=== PATIENT | female | born 1985 | race Asian ===

== ENCOUNTER → 2017-11-28 | Outpatient (REF) ==
[2017-11-28 13:43] LABS: RUBELLA IgG QUALITATIVE IMMUNE (IMMUNE)
[2017-11-29 08:11] LABS: RUBEOLA IgG ANTIBODY >300.0 AU/mL (Immune >29.9)
[2017-12-01 08:09] LABS: QUANTIFERON GOLD TB Negative (Negative); TB Test (QFT) Antigen 0.09 IU/mL (.); TB Test (QFT) Antigen Minus Ni 0.04 IU/mL (.); TB Test (QFT) Mitogen 7.21 IU/mL (.); TB Test (QFT) Nil 0.05 IU/mL (.)
== END ==
LOC: M LAB 11:29
DX: Z02.89 Encounter for other administrative examinations (principal)

== ENCOUNTER 2019-04-08 09:51 | Day surgery (SDC) | payer OTHER ==
[~2019-04-08] VITALS: Ht 162.6 cm; Wt 54.0 kg
[~2019-04-08 09:51] MED LIST: ADDE1TAB14 PO; IBUP-1114 PO; LR 1,000 ML IV ONE; YAZ1TAB PO
[2019-04-08 10:22] LABS: HEMATOCRIT 42.2 % (36.0-47.0); HEMOGLOBIN 13.3 g/dl (12.0-15.5); MEAN CORPUSCULAR HEMOGLOBIN 29.2 pg (27.0-33.0); MEAN CORPUSCULAR HGB CONC 31.5 g/dl (32.0-36.5); MEAN CORPUSCULAR VOLUME 92.5 fl (80.0-96.0); PLATELET COUNT, AUTOMATED 292 10^3/uL (150-450); RED BLOOD COUNT 4.56 10^6/uL (4.00-5.40); WHITE BLOOD COUNT 7.6 10^3/uL (4.0-10.0)
[2019-04-08 10:49] LABS: HCG, SERUM QUALITATIVE NEGATIVE (NEGATIVE)
[2019-04-08] MEDS ORDERED: KETOROLAC 60 MG/2 ML VIAL (J1885) As Ordered ONE (10:57)
[2019-04-08] MEDS ORDERED: ONDANSETRON 4MG/2ML VIAL (J2405) As Ordered ONE (10:57)
[2019-04-08] MEDS ORDERED: LIDOCAINE 2% INJ 100 MG/5 ML SDV (FOR ANES.) As Ordered ONE (10:57)
[2019-04-08] MEDS ORDERED: dexameTHASONE 4 MG/ML 1ML VIAL (J1100) As Ordered ONE (10:57)
[2019-04-08] MEDS ORDERED: fentaNYL 100 MCG/2 ML INJECTION (J3010) As Ordered ONE (10:57)
[2019-04-08] MEDS ORDERED: PROPOFOL 200 MG/20 ML VIAL As Ordered ONE (10:57)
[2019-04-08] MEDS ORDERED: MIDAZOLAM INJ 2 MG/2 ML VIAL (J2250) As Ordered ONE (10:57)
[2019-04-08] MEDS ORDERED: IODINE STRONG SOLN 15 ML BTL As Ordered ONE (11:47)
[2019-04-08] MEDS ORDERED: BUPIVACAINE/EPIN 0.25% 30 ML VIAL As Ordered ONE (11:48)
[2019-04-08] MEDS ORDERED: ACETAMINOPHEN 1000MG 100ML IV BTL (OFIRMEV) (J0131 PER 10MG) As Ordered ONE (12:19)
[2019-04-08] MEDS ORDERED: MEPERIDINE INJ 25 MG/ML VIAL (J2175) IV PRN (13:00)
[2019-04-08] MEDS ORDERED: METOCLOPRAMIDE INJ 10MG/2ML VIAL (J2765) IV PRN (13:00)
[2019-04-08] MEDS ORDERED: LR 1,000 ML IV SCH (13:00)
[2019-04-08] MEDS ORDERED: ONDANSETRON 4MG/2ML VIAL (J2405) IV PRN (13:00)
[2019-04-08] MEDS ORDERED: PERCOCET 5MG/325MG TAB PO PRN (13:00)
--- NOTE | 2019-04-08 14:10 | POST-OPPD ---
Postoperative Procedure Note Date Of Procedure: Apr 08, 2019 PREOPERATIVE DIAGNOSIS: HGSIL POSTOPERATIVE DIAGNOSIS: HGSIL Nabothian cysts FINDINGS: increased lugols uptake along anterior transformation zone. multiple nabothian cysts noted. PROCEDURE: LEEP SURGEON: Gustavo Mirza DO ANESTHESIA: MAC/Local SPECIMENS: LEEP specimen, ECC ESTIMATED BLOOD LOSS: < 5cc REPLACED: 500cc LR DRAINS: none COMPLICATIONS: non POSTOPERATIVE CONDITION: stable Detail Description of procedure: Patient is a 34 yo using OCP for contraceptive with HGSIL desiring management with excisional biopsy. Description of procedure: The risks, benefits, indications and alternatives of the procedure were reviewed with the patient and informed consent was obtained. Risk of bleeding, infection, pain, need for repeat procedure, increased risk of delivery discussed with patient. She expresses understanding and desires to proceed. Patient was brought to OR with IV running. Patient placed under monitored conscious sedation. Placed in lithotomy position. Vaginal and perineum prepped and draped. An insulated speculum placed in the vagina and cervix identified. Transformation zone visualized. Paracervical block performed using Marcaine 0.25% with epi (10cc used). Parous appearing cervix. Lugos applied. Decreased uptake noted around anterior transformation zone. Loop caudery size [id number] used. Power set to 60/60. Right to left pass x 2, one for the posterior and second pass for anterior cervix. Cervix cauderized thoroughly, hemostatic. ECC performed and cytobrush used to collect specimen. Monsels placed. All instruments removed from vagina. Count correct x 2. GUSTAVO MIRZA DO Apr 08, 2019 13:21
[2019-04-08 14:50] VITALS: BP 111/65
== END 2019-04-08 15:00 | disposition home or self-care (01) ==
LOC: M SDC 09:51
PROVIDERS: ATTEND Obstetrics & Gynecology
DX: D06.9 Carcinoma in situ of cervix, unspecified (principal); D64.9 Anemia, unspecified; F90.9 Attention-deficit hyperactivity disorder, unspecified type; G43.909 Migraine, unspecified, not intractable, without status migrainosus; Z88.2 Allergy status to sulfonamides; Z88.1 Allergy status to other antibiotic agents; Z79.899 Other long term (current) drug therapy
CPT/HCPCS: 36415; 57522; 84703; 85027; 88305; 88307; J0131; J1100; J1885; J2250; J2405; J3010